=== PATIENT | male | born 1975 | race Caucasian/White ===

== ENCOUNTER 2025-01-24 02:02 | Emergency (ER) | payer MEDICAID, SELFPAY ==
[2025-01-24 02:09] VITALS: BP 116/74; PULSE 109; RESP 17; TEMP 36.8; O2SAT 97
--- NOTE | 2025-01-24 02:12 | PD.EDANIML ---
ED Animal Bite RME/HPI General Chief Complaint: Animal Bite Stated Complaint: SPIDER BITE ON KNEE FOR 3 DAYS Time Seen by Provider: 01/24/25 02:08 Arrival date/time: 01/24/25 02:02 This is a case of 49-year-old male with history of cellulitis in the past came into the emergency room due to spider bite for 3 days now with redness swelling minimal drainage on the left knee thus decided to sought consult here in the emergency ROOM Limitations: no limitations Related Data Previous Rx's ?Medication ?Instructions ?Recorded sulfamethoxazole 800 1 tab PO BID #10 tabs 09/17/23 mg-trimethoprim 160 mg tablet (Bactrim DS) cephalexin 500 mg capsule 500 mg PO QID #40 caps 01/24/25 ibuprofen 800 mg tablet 800 mg PO Q8H PRN pain #20 tabs 01/24/25 mupirocin 2 % topical ointment 1 applic topical BID #22 grams 01/24/25 (Centany) sulfamethoxazole 800 1 tab PO Q12H #20 tabs 01/24/25 mg-trimethoprim 160 mg tablet (Bactrim DS) Allergies Allergy/AdvReac Type Severity Reaction Status Date / Time No Known Allergies Allergy Verified 09/17/23 18:36 Review of Systems Review of Systems Systems Reviewed: All systems reviewed, normal except as documented Constitutional Constitutional: Reports system reviewed and no additional complaints, except as documented and Reports as per HPI Cardiovascular Cardiovascular: Reports system reviewed and no additional complaints, except as documented and Reports as per HPI Respiratory Respiratory: Reports system reviewed and no additional complaints, except as documented and Reports as per HPI Gastrointestinal Gastrointestinal: Reports system reviewed and no additional complaints, except as documented and Reports as per HPI Musculoskeletal Musculoskeletal: Reports system reviewed and no additional complaints, except as documented and Reports as per HPI Neurologic Neurologic: Reports system reviewed and no additional complaints, except as documented and Reports as per HPI Past Medical History Past Medical History CARDIAC: Negative Congestive Heart Failure RESPIRATORY: Negative Chronic Obstructive Pulmonary Disease (COPD) GENITOURINARY: Negative Renal Disease ENDOCRINE: Negative Diabetes Mellitus Type 1 or Diabetes Mellitus Type 2 Family History FAMILY HISTORY: Positive Family Cardiac Disorders Social History SMOKING STATUS: Never smoker ED Exam General Limitations: Present no limitations General appearance: Present alert, in no apparent distress and other (Patient is awake alert oriented not in distress nontoxic looking well-hydrated well noURISHED) Head Head exam: Present atraumatic and normal inspection Eye Eye exam: Present normal appearance, PERRL and EOMI ENT ENT exam: Present normal exam, normal oropharynx and mucous membranes moist Neck Neck exam: Present normal inspection, full ROM and trachea midline; Absent tenderness, meningismus, lymphadenopathy or thyromegaly Chest Chest inspection: Present normal inspection and symmetric chest wall rise; Absent tenderness Respiratory Respiratory exam: Present normal lung sounds bilaterally; Absent respiratory distress, wheezes, stridor, accessory muscle use or prolonged expiratory phase Cardiovascular Cardiovascular exam: Present regular rate, normal rhythm and normal heart sounds; Absent bradycardia, tachycardia, irregular rhythm, systolic murmur or diastolic murmur Abdominal Exam Abdominal exam: Present soft and normal bowel sounds; Absent distention, tenderness, guarding, rebound, rigidity, diminished bowel sounds, hyperactive bowel sounds, hypoactive bowel sounds or organomegaly Extremities Exam Extremities exam: Present normal inspection and full ROM Expanded Lower Extremity Exam Knee exam: Present tenderness, swelling, erythema and other (Noted abscess on the left anterior knee minimal bleeding but hard to touch warm to touch no fluctuance nonindurated with surrounding cellulitis ROM intact neurovascular intact pulses were full and equal capillary refill less than 2 secs); Absent abrasion, laceration, ecchymosis, deformity, crepitus, dislocation, effusion, anterior drawer sign, posterior draw sign, pain with valgus, laxity with valgus, pain with varus, laxity with varus or knee extension intact Lower leg exam: Present normal inspection, full ROM and erythema; Absent tenderness, swelling, abrasion, laceration, ecchymosis, deformity, crepitus, dislocation, palpable cord, Homans' sign or Achilles tendon intact Ankle exam: Present normal inspection and full ROM; Absent tenderness or swelling Back Exam Back exam: Present normal inspection and full ROM Neurological Exam Neurological exam: Present alert, oriented X3, CN II-XII intact, normal gait and reflexes normal; Absent motor sensory deficit Psychiatric Psychiatric exam: Present normal affect and normal mood Skin Skin exam: Present warm, dry, intact, normal color and other (Cellulitis abscess left anterior KNEE) Course Quality Measures none Orders Category Date Time Status Ampicillin/Sulbac Inj [Unasyn Inj] 3 gm Med 01/24/25 02:09 Discontinued Sodium Chloride 0.9% (Pop) [NS 0.9% mini bag] 100 ml IV X1 Vital Signs Vital signs: Vital Signs Temperature 98.2 F 01/24/25 02:09 Pulse Rate 109 H 01/24/25 02:09 Respiratory Rate 17 01/24/25 02:09 Blood Pressure 116/74 01/24/25 02:09 Pulse Oximetry (%) 97 01/24/25 02:09 Oxygen Delivery Method Room Air 01/24/25 02:09 Oxygen saturation is 97% in room air Animal Bite MDM Narrative MDM Narrative:: This is a case of 49-year-old male with history of cellulitis in the past came into the emergency room due to spider bite for 3 days now with redness swelling minimal drainage on the left knee thus decided to sought consult here in the emergency ROOM physical examination patient is awake alert oriented not in distress nontoxic looking vital signs stable BP stable not tachycardic not tachypneic afebrile and nonhypoxic noted moderate tenderness on the left anterior knee with cysts redness extending to the left anterior leg suggestive of cellulitis patient also have 2 cm abscess minimal drainage tender to touch hard to touch ROM intact pulses were full and equal capillary refill less than 2 seconds at the time of exam there is no indication to perform incision and drainage antibiotic treatment only at this point patient was given Unasyn IM here in the emergency room and was prescribed cephalexin and Bactrim he will follow-up here in the emergency room for reevaluation and possible incision and drainage worsening symptoms or any emergent concern return precaution in the ER is advised Patient was discharged with comfortable condition walking with stable gait. Patient verbalized no further complains explained diagnosis and answered patient question. Patient is comfortable with the proposed management plan including the need to follow up with his/her primary care physician and any specialist if applicable Discussed patient for any urgent condition or worsening sx, He/She needed to go to emergency room immediately or call 911. Patient acknowledge the responsibility to follow up as instructed and to monitor her/his symptoms. For any persistence of the symptoms for more than 3-5 days return precaution advised. Discussed the result of the test and was given printed discharge instruction Patient data External records reviewed:: [facility] previous records Clinical information provided by:: patient Social determinants that could affect healthcare access:: none Patient has the following chronic illnesses:: NONE How is presenting disease/condition affected by chronic disease/condition?: no chronic disease Evaluation data The following diagnostics were reviewed and interpreted by me:: other (specify) Lab and/or radiology exams considered but not ordered:: NONE Interpretation Summary: NONE Medications / Prescriptions Medications or Prescriptions considered but not ordered:: GIVEN Medication administrations:: Medication Administration History Discontinued Medications Ampicillin Sodium/Sulbactam (Sodium 3 gm/ Sodium Chloride) 100 mls @ 200 mls/hr IV X1 ONE Stop: 01/24/25 02:10 GIVEN Consultations Consultation(s) initiated? (list below): No Diagnosis Differential diagnosis animal bite: bite by animal Most likely diagnosis given after review of the tests above:: CELLULITIS WITH ABSCESS SECONDARY TO SPIDER BITE Admission Indicated Admission indicated?: not indicated Explain why admission is indicated or not indicated:: NOT INDICATED Admission Request Was there a request for admission?: No Admission Attestation Admission request attestation: NOT INDICATED Disposition Plan Disposition Plan: Discharge Discharge Attestation Discharge Attestation: The patient and all family members were given an opportunity to ask questions and understood the discharge instructions. Discharge instructions specifically effects, indications for sooner follow up or return to the emergency department, and the expected course of current diagnosis. Patient condition: Stable Discharge Plan Plan Patient Disposition: HOME (Self Care) Patient condition on transfer: Stable Prescriptions/Referrals Prescriptions/Med Rec: New cephalexin 500 mg capsule 500 mg PO QID Qty: 40 0RF ibuprofen 800 mg tablet 800 mg PO Q8H PRN (Reason: pain) Qty: 20 0RF sulfamethoxazole-trimethoprim [Bactrim DS] 800-160 mg tablet 1 tab PO Q12H Qty: 20 0RF mupirocin [Centany] 2 % ointment 1 applic topical BID Qty: 22 0RF No Action sulfamethoxazole-trimethoprim [Bactrim DS] 800-160 mg tablet 1 tab PO BID Qty: 10 0RF Problem List Clinical Impression: Spider bite, Abscess of knee, Cellulitis Patient/Caregiver Discharge Instructions Education Materials: ED Abscess Antibiotic ..., ED Cellulitis, ED Insect Bite Additional Instructions: Follow-up with your primary care physician in 2 days for reevaluation return to the emergency room in 2 days for reevaluation of the abscess and cellulitis and possible incision and drainage worsening symptoms or any emergent concern call 911 or go to the nearest emergency room take your medication as directed finish the course of antibiotic keep the area clean and dry Print Language: Syrian Stand Alone Forms: [employer]oon[employer] Award Info., Patient Portal Info Letter PA/INSERT OPERATOR Supervising Physician PA/INSERT OPERATOR Supervising Physician: dR KAITY ORTIZ
[2025-01-24] MEDS: AMPICILLIN/SULBAC INJ 3 GM VIAL IM (03:42)
[2025-01-24] MEDS: WATER, STERILE INJ 10 ML VIAL 3.2 ML IM (03:47)
[2025-01-24 03:53] VITALS: RESP 16
== END 2025-01-24 03:53 | disposition home or self-care (01) ==
PROVIDERS: Emergency Provider Emergency Medicine; PCP Family Medicine
DX: T63.301A Toxic effect of unspecified spider venom, accidental (unintentional), initial encounter (principal); L02.416 Cutaneous abscess of left lower limb; L03.116 Cellulitis of left lower limb
CPT/HCPCS: 96372; 99282; A4216; J0295